=== PATIENT | male | born 2005 | race Hispanic/Latino ===

== ENCOUNTER 2023-12-02 19:56 | Emergency (ER) | payer OTHER, SELFPAY ==
[2023-12-02 19:59] VITALS: BP 128/76
[2023-12-02 20:15] LABS: % Basophils 0.5 % (0-2); % Eosinophils 1.1 % (0-6); % Immature Granulocytes 0.2 % (0-0.5); % Lymphocytes 35.4 % (20.5-51.1); % Monocytes 6.8 % (1.7-9.3); Absolute Eosinophils 0.1 10^3/uL (0-0.7); Absolute Monocytes 0.6 10^3/uL (0.1-0.6); Absolute Neutrophils 4.7 10^3/uL (1.4-6.5); Hematocrit 41.9 % (39.0-52.0); Hemoglobin 14.7 g/dL (13.0-18.0); Mean Corp Hgb Conc. 35.1 g/dL (33.0-37.0); Mean Corpuscular Hgb 30.2 pg (27.0-31.0); Mean Platelet Volume 11.6 fL (7.4-10.4); Nucleated Red Blood Cells % 0 % (-); Platelet Count 217 10^3/uL (130-400); Red Blood Cell Count 4.87 10^6/uL (4.70-6.10); Red Cell Dist. Width 12.5 % (11.5-14.5); White Blood Cell Count 8.4 10^3/uL (4.8-10.8)
[2023-12-02 20:28] LABS: ALT (SGPT) 31 U/L (0-50); AST (SGOT) 29 U/L (17-59); Albumin 4.3 g/dl (3.5-5.0); Alkaline Phosphatase 98 U/L (38-126); Blood Urea Nitrogen 14 mg/dl (9-20); Calcium 9.1 mg/dl (8.4-10.2); Carbon Dioxide 26 mmol/L (22-30); Chloride 105 mmol/L (98-107); Glucose 101 mg/dl (70-99); Potassium 3.9 mmol/L (3.5-5.1); Sodium 137 mmol/L (135-145); Total Bilirubin 0.6 mg/dl (0.2-1.3); Total Protein 6.9 g/dl (6.3-8.2); eGFR > 60.00
[2023-12-02 20:55] VITALS: BP 139/64
[2023-12-02 21:00] VITALS: BP 141/73
--- NOTE | 2023-12-02 21:01 | ED.GENMED ---
History of Present Illness
General
Chief Complaint: Dizziness
Time Seen by Provider: 12/02/23 21:00
Travel History
Have you had any contact with someone who has COVID-19?: No
Do you have any symptoms of coronavirus? Fever > 100 degrees, chills, cough, shortness of breath, sore throat, loss of taste or smell, muscle aches, or headache?: No
History of Present Illness
History of Present Illness:
HPI: The patient primarily presents with dizziness however this is associate with headache, nausea, and photophobia. He states that he had a concussion a few months ago during soccer injury when another player's shoulder struck him in the back of
the head. At that time he followed up with a neurologist, there is no neuroimaging but was felt to have a concussion. He intermittently has had similar episodes like he does today in the past including a couple days ago.
EXAM:
GENERAL: Well appearing in no distress
HEENT: Moist oral mucosa
CARDIOVASCULAR: No murmurs, normal heart rate and rhythm, No chest wall tenderness
PULMONARY: No respiratory distress, breath sounds are clear and equal
ABDOMEN: Soft with no peritoneal signs, no tenderness
NEUROLOGIC: Excellent strength all extremities, no coordination deficits, normal finger-nose testing
PSYCHIATRIC: Appropriate mental status, normal insight and judgement
EXTREMITIES: Nontender, no edema, moves all extremities equally
SKIN: No rash, no lesions
ED COURSE:
9:05 PM: I initially evaluated patient
NUMBER AND COMPLEXITY OF PROBLEMS ADDRESSED AT THE ENCOUNTER
� Chronic conditions affecting care: Has had concussion in the past, has had COVID-19
� Acute Exacerbation and/or Progression of Chronic Illness: This is an acute problem
� Differential Diagnosis includes: Migraine headache, postconcussion syndrome, positional vertigo, based on physical exam highly doubt intracranial hemorrhage
AMOUNT AND/OR COMPLEXITY OF DATA TO BE REVIEWED AND ANALYZED
� I performed an independent evaluation of and my interpretation is:
EKG: Sinus 54, normal axis, normal intervals, no acute ST abnormality, no old to compare
CT:
X-rays:
Laboratory Studies: CBC normal, chemistries unremarkable, glucose 101
Other:
� Review of other/old records: Cervical spine x-ray from August 2023 was unremarkable
� Clinical information was obtained by an independent historian: I spoke to brother and mother at bedside
� Prescriptions/Medications Considered but not given:
� Further testing considered but not performed: Considered CT imaging however given young age along with normal neurologic examination we will hold off on CT imaging.
RISK OF COMPLICATIONS AND/OR MORBIDITY OR MORTALITY OF PATIENT MANAGEMENT
� Social determinants of health affecting care: Lives at home
� Discussion with other providers:
� Escalation of care including admission/observation vs risk of discharge considered: The patient did have concussion in the recent past and symptoms may be related to postconcussion syndrome. He does have vertiginous symptoms
but has a normal neurologic examination. He does have a headache, photophobia and nausea�will give Toradol and Reglan and reassess. On reassessment at 10:20 PM, the patient feels significant improved. He appears comfortable at time of discharge.
Suspect migraine type of headache. Suggested he also try Benadryl to help with dizziness/nausea. I have also given him contact information for local neurologist.
Past History
Past History
ED Past Medical History: None
ED Past Surgical History: None
Social History
Tobacco: Non-smoker
Phy Exam
Physical Exam
Physical Exam:
See HPI
Course
Orders/Labs/Results
Orders:
Orders
12/02/23 20:01
Electrocardiogram (*1) Urgent
Reason for Study: Vertigo / Dizzy
12/02/23 20:02
EKG- Treatment ONCE
12/02/23 20:06
CMP [Comprehensive Metabolic Panel] Urgent
Complete Blood Count/With Diff Urgent
12/02/23 21:09
0.9% Sodium Chloride 1000 ml [Nss] 1,000 ml IV BOLUS
Diphenhydramine [Benadryl] 25 mg IV NOW STA
Ketorolac [Toradol] 15 mg IV NOW STA
Metoclopramide [Reglan] 10 mg IV NOW STA
Abnormal Lab Results
12/02/23
20:06
MPV 11.6 H fL
(7.4-10.4)
Glucose 101 H mg/dl
(70-99)
12/02/23 20:06
12/02/23 20:06
Vital Signs
Initial and Last Documented VS:
Initial Vital Signs
Temp Pulse Resp BP Pulse Ox
98.1 F 66 16 128/76 98
12/02/23 19:59 12/02/23 19:59 12/02/23 19:59 12/02/23 19:59 12/02/23 19:59
Last Documented Vital Signs
Temp Pulse Resp BP Pulse Ox
98.1 F 58 19 141/73 100
12/02/23 19:59 12/02/23 21:45 12/02/23 21:45 12/02/23 21:00 12/02/23 21:45
*Critical Care Note
Total Time (30-74mins, 75-104mins- exclusive of procedures): Not Applicable
ED Attending Note
-
Portions of this chart may have been created with voice recognition software.� Occasional wrong word or��sound alike� substitutions may have occurred due to the inherent limitations of voice recognition software.
Discharge Plan
Departure
Patient Disposition: Home (Routine Discharge)
Date of Disposition: 12/02/23
Time of Disposition: 22:24
Patient with high blood pressure during this ER visit?: Yes
Discharge Problem:
Migraine
Prescriptions:
No Action
No Current Medications
0
Referrals:
Flavio Bustamante MD [Active] - Follow up in 5-7 days
UNKNOWN - PT DOES,NOT KNOW [Unknown Provider] -
Activity Restrictions/Additional Instructions:
We gave you Reglan and Toradol along with Benadryl. Reglan and Toradol commonly helps migraine type of headaches. Benadryl, which is [id number], may help with nausea as well as vertigo. I have given you the contact information for local
neurologist. Return here if worse
Interventions
Interventions:
*Risk Screen - Suicide Last Done: 12/02/23 19:59
*Neglect/Abuse Screening Last Done: 12/02/23 19:59
ED- Fall Risk Assessment Last Done: 12/02/23 21:00
ED- Cardiac Assessment Last Done: 12/02/23 21:00
ED- Neurological Assessment Last Done: 12/02/23 21:00
ED Swallowing Screen Last Done: 12/02/23 21:00
[2023-12-02] MEDS: REGLAN 10 MG IV (21:15)
[2023-12-02] MEDS: TORADOL 15 MG IV (21:32)
[2023-12-02] MEDS: NSS 1000 IV (21:34)
[2023-12-02] MEDS: BENADRYL 25 MG IV (21:34)
[2023-12-02 21:48] VITALS: BP 122/75
[2023-12-02 22:00] VITALS: BP 127/76
== END 2023-12-02 23:17 | disposition home or self-care (01) ==
LOC: EMR 19:56
PROVIDERS: Emergency Medicine; EMERGENCY PHYSICIAN Emergency Medicine; FAMILY PHYSICIAN Family Medicine
DX: G43.909 Migraine, unspecified, not intractable, without status migrainosus (principal); R03.0 Elevated blood-pressure reading, without diagnosis of hypertension
CPT/HCPCS: 99284; 96374; 96375 ×2; 96361; 80053; 85025; 93005

== ENCOUNTER → 2023-12-27 09:01 | Outpatient (REF) | payer OTHER, SELFPAY ==
[2023-12-27 10:22] LABS: Iron 125 ug/dl (49-181)
[2023-12-27 10:31] LABS: Percent Saturation 41 % (20-50); Total Iron Binding Capacity 299 ug/dl (261-462)
[2023-12-27 10:53] LABS: TSH Reflex To Free T4 1.02 uIU/ml (0.47-4.68)
[2023-12-27 10:57] LABS: Ferritin 81.5 ng/ml (17.9-464.0)
[2023-12-27 11:28] LABS: Folate 13.6 ng/ml (2.76-20); Vitamin B12 635 pg/ml (239-931)
[2023-12-27 12:14] LABS: Glycohemoglobin (HgbA1c) 5.2 % (4.0-5.6)
== END ==
LOC: REG 09:01
PROVIDERS: ATTENDING PHYSICIAN Nurse Practitioner Family; FAMILY PHYSICIAN Family Medicine
DX: H81.10 Benign paroxysmal vertigo, unspecified ear (principal)
CPT/HCPCS: 36415; 82607; 82728; 82746; 83036; 83540; 83550; 84443